=== PATIENT | female | born 1995 | race African-American/Black ===

== ENCOUNTER 2019-09-15 12:07 | Emergency (ER) | payer OTHER ==
[~2019-09-15] VITALS: Ht 157.5 cm; Wt 49.9 kg
[2019-09-15] MEDS ORDERED: BACTRIM DS TAB1 EACH PO (14:49)
[2019-09-15] MEDS ORDERED: DICLOFENAC SOD100 MG PO (14:49)
== END 2019-09-15 14:54 | disposition home or self-care (01) ==
LOC: ER 12:07
DX: D25.2 Subserosal leiomyoma of uterus (principal); R10.2 Pelvic and perineal pain

== ENCOUNTER 2023-07-23 05:13 | Emergency (ER) | payer OTHER ==
[~2023-07-23] VITALS: Ht 152.4 cm; Wt 49.9 kg
[~2023-07-23 05:13] MED LIST: BACTRIM DS TAB1 EACH PO; DICLOFENAC SOD100 MG PO
== END 2023-07-23 10:10 | disposition home or self-care (01) ==
LOC: ER 05:13
PROVIDERS: General Practice
DX: R51.9 Headache, unspecified (principal); J02.9 Acute pharyngitis, unspecified; Z20.822 Contact with and (suspected) exposure to COVID-19
CPT/HCPCS: 36415; 96365; 99284; J0696; J1200; J1885; J2175; J2920; J2930

== ENCOUNTER 2024-11-09 14:38 | Emergency (ER) | payer OTHER ==
[~2024-11-09] VITALS: Ht 157.5 cm; Wt 49.9 kg
[2024-11-09] MEDS ORDERED: NAPROXEN500 MG PO (16:16)
[2024-11-09 16:17] VITALS: BP 118/81; O2SAT 100
[2024-11-09] MEDS ORDERED: DEXAMETHASONE SODIUM PHOSPHATE 4 MG/ML VIAL IM STA (17:01)
[2024-11-09] MEDS ORDERED: KETOROLAC TROMETHAMINE 60 MG VIAL IM STA (17:01)
== END 2024-11-09 18:54 | disposition home or self-care (01) ==
LOC: ER 14:40
DX: J06.9 Acute upper respiratory infection, unspecified (principal)

== ENCOUNTER 2025-08-22 21:48 | Emergency (ER) | payer OTHER ==
[~2025-08-22] VITALS: Ht 157.5 cm; Wt 52.2 kg
[~2025-08-22 21:48] MED LIST changes: +NAPROXEN500 MG PO
[2025-08-22] MEDS ORDERED: KETOROLAC TROMETHAMINE 60 MG VIAL IM STA (23:09)
[2025-08-22] MEDS ORDERED: KETOROLAC TROMETHAMINE 30 MG VIAL ONE (23:23)
[2025-08-23] MEDS ORDERED: KETOROLAC TROMETHAMINE 60 MG VIAL IM ONE (00:02)
== END 2025-08-23 00:58 | disposition home or self-care (01) ==
LOC: ER 21:48
DX: T23.101A Burn of first degree of right hand, unspecified site, initial encounter (principal); X08.8XXA Exposure to other specified smoke, fire and flames, initial encounter; Y93.G3 Activity, cooking and baking; Y92.010 Kitchen of single-family (private) house as the place of occurrence of the external cause; Y99.9 Unspecified external cause status; Z91.018 Allergy to other foods
CPT/HCPCS: 96372; 99282; J1885

== ENCOUNTER → 2025-10-10 | Emergency (ER) | payer OTHER ==
[~2025-10-10] VITALS: Ht 157.5 cm; Wt 52.2 kg
[~2025-10-10] MED LIST changes: +DEXAMETHASONE SODIUM PHOSP/PF 10 MG/ML VIAL IJ ONE; +DEXAMETHASONE SODIUM PHOSPHATE 4 MG/ML VIAL ONE; +SUMATRIPTAN SUCCINATE 6 MG/0.5 ML VIAL SUBCUTANEO ONE
[2025-10-10 14:31] VITALS: BP 134/85; O2SAT 100
[2025-10-10 16:21] LABS: BASO % 0.2 % (0.1-1.2); EOS # 0.05 (0.04-0.54); EOS % 0.9 % (0.7-7.0); LYMPH # 1.85 (1.18-3.74); LYMPH % 33.0 % (19.3-53.1); MEAN PLATELET VOLUME 11.20 fl (9.4-12.4); MONO # 0.33 (0.24-0.82); MONO % 5.9 % (4.7-12.5); NEUT # 3.35 (1.56-6.13); NEUT % 59.8 % (34.0-71.1); RED CELL DISTRIBUTION WIDTH 12.1 % (11.6-14.4)
[2025-10-10 16:49] LABS: ALT/SGPT 66 U/L (12-78); AST/SGOT 83 U/L (15-37); BILIRUBIN TOTAL 0.25 mg/dL (0.3-1.2); BUN CREA RATIO 25 (7.0-25.0); CREATININE SERUM 0.68 mg/dL (0.55-1.02); GFR 100.27; GLOBULINA 3.3 G/DL (2.4-3.5); GLUCOSE FASTING 99 mg/dL (65-100); OSMOLALITY SERUM 283 MOSM/KG (275-295)
[2025-10-10 17:00] LABS: COVID-19 AG NEGATIVE (NEGATIVE)
[2025-10-10 17:09] LABS: HCG QUANTITATIVE < 1 mUI/mL (1-3)
== END | disposition home or self-care (01) ==
LOC: ER 14:02
PROVIDERS: General Practice
DX: R42 Dizziness and giddiness (principal); H53.9 Unspecified visual disturbance; Z20.822 Contact with and (suspected) exposure to COVID-19; Z87.09 Personal history of other diseases of the respiratory system; Z88.8 Allergy status to other drugs, medicaments and biological substances; Z91.018 Allergy to other foods